=== PATIENT | female | born 1935 | race Two or more races ===

== ENCOUNTER 2024-11-03 06:06 | Emergency (ER) | payer OTHER ==
[~2024-11-03] VITALS: Ht 152.4 cm; Wt 45.4 kg
[2024-11-03] MEDS ORDERED: ACETAMINOPHEN 325 MG TABLET ONE (10:41)
[2024-11-03] MEDS ORDERED: ACETAMINOPHEN 325 MG TABLET PO ONE (11:00)
[2024-11-03 11:04] VITALS: BP 100/65; TEMP 98.5; O2SAT 98
== END 2024-11-03 11:05 | disposition home or self-care (01) ==
LOC: ER 06:11
DX: S00.03XA Contusion of scalp, initial encounter (principal); M54.2 Cervicalgia; R51.9 Headache, unspecified; J44.9 Chronic obstructive pulmonary disease, unspecified; Z88.1 Allergy status to other antibiotic agents; Z88.2 Allergy status to sulfonamides; W18.30XA Fall on same level, unspecified, initial encounter; Y93.89 Activity, other specified; Y92.89 Other specified places as the place of occurrence of the external cause; Y99.8 Other external cause status
CPT/HCPCS: 99284; 72125; 70450; J7030